=== PATIENT | male | born 1975 | race African-American/Black ===

== ENCOUNTER 2017-07-25 15:15 | Emergency (ER) | payer MEDICAID ==
[~2017-07-25] VITALS: Ht 182.9 cm; Wt 88.0 kg
[2017-07-25 15:22] VITALS: BP 114/59
== END 2017-07-25 22:05 | disposition left against medical advice (07) ==
LOC: ER 16:24
DX: Z53.21 Procedure and treatment not carried out due to patient leaving prior to being seen by health care provider (principal)